=== PATIENT | male | born 1970 | race Asian ===

== ENCOUNTER 2020-01-04 21:47 | Emergency (ER) | payer MEDICAID ==
[~2020-01-04] VITALS: Ht 172.7 cm; Wt 72.7 kg
[2020-01-04] MEDS ORDERED: KETOROLAC 30MG/ML VIAL IM ONE (23:30)
[2020-01-05 00:53] VITALS: BP 121/71
== END 2020-01-05 00:54 | disposition home or self-care (01) ==
LOC: ER 21:47
DX: M13.842 Other specified arthritis, left hand (principal); M13.841 Other specified arthritis, right hand; Z88.0 Allergy status to penicillin; Z88.2 Allergy status to sulfonamides
CPT/HCPCS: 93005; 96372; 99283; J1885